=== PATIENT | female | born 1930 | race Caucasian/White ===

== ENCOUNTER → 2018-05-06 | Outpatient (CLI) | payer OTHER ==
[~2018-05-06] MED LIST: ASPI1CHW19 PO; ATOR-24 PO; CARV6.25 PO; CLOP1TAB15 PO; FAMO20TA9 PO; GLC500 PO; IMDSR60 PO; LISI-725 PO; SERT100T PO; [UNRECOGNIZED DRUG - CODE] PO; benicar PO
--- NOTE | 2018-05-06 12:06 | DIAGNOSTIC IMAGING REPORT ---
LUMBAR SPINE WITHOUT CLINICAL HISTORY: 88 years-old Female presenting with LUMBAR SPONDYLOSIS. TECHNIQUE: Multidetector CT of the lumbar spine was performed without the use of intravenous contrast. 3-D volumetric and/or maximum intensity projection (MIP) images were subsequently reconstructed for review. IV contrast: None. A dose lowering technique was used consistent with the principles of ALARA (as low as reasonably achievable). COMPARISON: None. CT DOSE (mGy.cm): The estimated cumulative dose is 570.69 mGy.cm. FINDINGS: Senior [employer] topogram: Posterior lumbar fusion hardware. Levocurvature of the lumbar spine centered at L2-3. Bilateral posterior transpedicular screw fixation of L2-L4. No hardware breakage. Laminectomy of L3. No lucency surrounding the screws. Interbody spacers at L2-3 and L3-4. Apart from scoliosis, otherwise normal lumbar lordosis. Vertebral body heights maintained. A hemangioma is evident at L3. Significant adjacent level degenerative change at L4-5. Vacuum disc phenomenon noted at this level. Mild adjacent level degenerative change at L1-2. Additional multilevel degenerative change detailed below: L1-2: Mild bilateral neural foraminal narrowing primarily from a mild disc bulge. No evidence of spinal canal narrowing. L2-3: Streak artifact degrades dilation. No gross evidence of neural foraminal narrowing. L3-4: Streak artifact degrades evaluation. No gross evidence of neural foraminal narrowing. L4-5: Disc bulge results in moderate right and severe left neural foraminal narrowing. No gross evidence of significant spinal canal narrowing. L5-S1: Mild left neural foraminal narrowing suggested. Atherosclerosis noted. Paraspinal musculature with postoperative changes. No focal fluid collection. Degenerative changes of the sacroiliac joints. Visualized portion of the sacrum intact. IMPRESSION: 1. Posterior lumbar fusion hardware from L2 to L4 with L3 laminectomy. No hardware complication. 2. Significant adjacent level degenerative change at L4-5. Evaluation is overall degraded by streak artifact arising from the hardware. Electronically signed by: Haroon Jimenez M.D. 05/06/2018 12:05 PM Dictated Date/Time: 05/06/2018 11:57 AM
== END | disposition home or self-care (01) ==
LOC: C.CTS 11:24
PROVIDERS: ATTEND Pain Medicine Interventional Pain Medicine
DX: M47.817 Spondylosis without myelopathy or radiculopathy, lumbosacral region (principal); Z98.1 Arthrodesis status